=== PATIENT | male | born 1955 | race Caucasian/White ===

== ENCOUNTER 2016-10-10 10:09 | Inpatient (IN) | payer OTHER ==
[~2016-10-10] VITALS: Ht 182.9 cm; Wt 101.6 kg
--- NOTE | ~2016-10-10 | P ---
[facility] [address] PROCEDURE REPORT Name: FRANNIE CHARLTON Tamie Room #: 202-P [facility] IN M.R.#: [id number] Admission: 10/10/16 Attend Phys: Anurag Valdez MD Discharge: Date of : 53 Report #: [id number] THIS REPORT FOR: //name// CC: Pablo Jarquin DATE OF SERVICE: 10/12/2016 DIAGNOSTIC EGD Patient of Dr. Anurag Valdez and Dr. Cayla Jarquin and Dr. Pablo Islas ____. INDICATION FOR PROCEDURE: The patient has a history of passing dark red blood clots per rectum and a drop in his hemoglobin. He was fully anticoagulated at the time of admission and this was for a history of a stoke. Colonoscopy did not reveal a source of bleeding though there was a small amount of blood in the distal colon that was removed with the scope. No active bleeding was seen. The only abnormality that I saw yesterday was uncomplicated diverticula on the left and right side of the colon. EGD is being performed today because there may be a more proximal source of his blood loss in a fully anticoagulated state. Informed consent for this procedure was obtained prior to the administration of any medication. The risks of the procedure which include bleeding, perforation, infection, complications of sedation and the possibility I could miss something have been explained to the patient and he has indicated his consent by signing. DESCRIPTION OF PROCEDURE: Propofol was slowly titrated before and during this procedure for patient comfort by the anesthesia service. The Fujinon upper videoscope was introduced through the upper esophageal sphincter and advanced under direct visualization to the third portion of the duodenum. Findings are noted on withdrawal of the scope. First of all, I saw no blood in the upper GI tract that I visualized. I did not see active bleeding from any site. The second portion of the duodenum appears normal throughout its entirety. In the duodenal bulb, there are several shallow white based nonbleeding ulcerations and white based erosions. These may have been a source of blood loss, but are not actively bleeding and have no visible vessels at this time. I personally think this is a low risk type of finding. The remaining duodenal bulb appears normal. Pylorus, normal mucosa. Antrum, normal mucosa. Body, normal mucosa. Cardia and fundus, normal mucosa. On retroflex view, I was able to see that the patient has a very large hiatal hernia and that he does have some nonbleeding Mike erosions. These may have been the source of GI blood loss, but they are not bleeding at this time. Scope was withdrawn to the esophagus. The Z-line is [address] [address] PROCEDURE REPORT Name: FRANNIE CHARLTON Room #: 202-P [facility] IN M.R.#: [id number] Admission: 10/10/16 Attend Phys: Anurag Valdez MD Discharge: Date of : 53 Report #: [id number] appropriately located at the top of the gastric folds and appears normal. The esophageal mucosa appears normal throughout its entirety. The scope was withdrawn. The patient went to the recovery area in stable condition. He tolerated the procedure well. IMPRESSION: 1. Duodenal bulb erosions and shallow white based duodenal bulb ulcers, nonbleeding. 2. Large hiatal hernia. 3. Mike erosions, nonbleeding. My recommendations at this point because these may not actually be the source of significant blood loss, are to proceed with the M2 capsule study today to make certain there is no large bleeding lesion or potentially large lesion in the small intestine that might explain his acute GI bleeding. The patient has agreed to this prior to the EGD and the sedation for the EGD and his likewise has agreed to the possible M2 capsule and EGD today. The risks were fully explained also prior to sedation of this patient. Thank you very much once again for allowing me to participate in his care, Dr. Valdez and Dr. Jarquin. <ELECTRONICALLY SIGNED> By: Carolina Cardona DO 10/12/16 1624 1055 1145 Carolina Cardona DO /nt
--- NOTE | ~2016-10-10 | P ---
[facility] [place] [address] PROCEDURE REPORT Name: FRANNIE CHARLTON Room #: 202-P [facility] IN M.R.#: [id number] Admission: 10/10/16 Attend Phys: Anurag Valdez MD Discharge: Date of : 53 Report #: [id number] THIS REPORT FOR: //name// CC: Pablo Jarquin DATE OF SERVICE: 10/10/2016 He is a patient of Dr. Cayla Jarquin. INDICATION FOR PROCEDURE: This patient has had painless hematochezia, etiology uncertain. He has a history of colonic diverticulosis, which may be the source, but colonoscopy is being performed because of passage of bright red clots per rectum. He has been on Coumadin with therapeutic INR. Informed consent for this procedure was obtained prior to the administration of any medication. The risks of the procedure which include bleeding, perforation, infection, complications of sedation and the possibility I could miss something have been explained to the patient and he has indicated his consent by signing. Propofol and ketamine were slowly titrated before and during this procedure for the patient comfort by the anesthesia service. A digital anorectal exam was done and no abnormalities were palpated. Then, the [employer] [place] colonoscope was introduced through the anal sphincter and advanced under direct visualization to the terminal ileum. Findings are noted on withdrawal of the scope. The terminal ileum mucosa appears normal. Cecum, normal mucosa. Ascending colon, normal mucosa except for an uncomplicated diverticulum in a couple of places. Retroflexed view in the ascending colon did not reveal any lesions on the backs of the valves. Hepatic flexure, normal mucosa. Transverse colon, normal mucosa. Splenic flexure, normal mucosa. Descending colon, normal mucosa. Sigmoid colon, multiple uncomplicated diverticula were noted in the sigmoid colon, none of them are actively bleeding. Rectum, normal mucosa. Retroflexed view did not reveal any abnormalities. On initial insertion of the scope, there was blood in the distal rectum and the sigmoid colon. It was cleared completely by washing with the scope and I saw no further bright red blood or dark red blood throughout the colon, thereafter. The scope was withdrawn. The patient went to the recovery area in stable condition. He tolerated the procedure well. IMPRESSION: Normal colonoscopic exam to the terminal ileum except for uncomplicated sigmoid and right-sided diverticulosis. My recommendations are for him to be on a heart-healthy diet, which is high fiber. We will keep him [address] [address] PROCEDURE REPORT Name: FRANNIE CHARLTON Room #: 202-P [facility] IN .R.#: [id number] Admission: 10/10/16 Attend Phys: Anurag Valdez MD Discharge: Date of : 53 Report #: [id number] n.p.o. after midnight, proceed with an EGD possible M2 video capsule of the small intestine tomorrow. Thank you very much once again for allowing me to participate in his care, Dr. Valdez and Dr. Jarquin. <ELECTRONICALLY SIGNED> By: Carolina Cardona DO 10/12/16 1050 1416 [id number] Carolina Cardona DO /nt
--- NOTE | ~2016-10-10 | EKG ---
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
--- NOTE | ~2016-10-10 | D ---
[facility] [place] [address] DISCHARGE SUMMARY Name: ZOLTANFRANNIE Tamie Room #: 202-P [facility] IN M.R.#: [id number] Admission: 10/10/16 Attend Phys: Anurag Valdez MD Discharge: 10/13/16 Date of : 53 Report #: [id number] THIS REPORT FOR: //name// CC: Pablo Jarquin DATE OF SERVICE: 10/13/2016 DISCHARGE DIAGNOSES: 1. 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 2. Acute blood loss anemia secondary to above, stable. 3. Duodenal bulb erosion and duodenal bulb ulcers, nonbleeding. 4. Large hiatal hernia. 5. Mike lesions, nonbleeding. 6. Prior history of deep venous thrombosis in 2007, on long-term Coumadin use. 7. History of hemorrhagic cerebrovascular accident. 8. History of prostate cancer. CONSULTS: GI. PROCEDURES: He had a colonoscopy that show diverticulosis. He had an EGD that showed shallow duodenal ulcer, Mike lesions, no active bleeding. 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 HOSPITAL COURSE: The patient is a 61-year-old male with a prior history of CVA, also prior history of DVT in 2007, on chronic Coumadin use, followed by Dr. Cayla Jarquin, presented to the ER secondary to rectal bleeding. Please see details of admission dictated by Anurag Valdez on 10/10/2016. The patient was admitted and GI was consulted. This was felt to be a lower GI bleed secondary to the description of his bloody stools. His Coumadin was held. He underwent upper and lower endoscopies, as well as had an M2A with results as above. It is felt that this was probably related his AVMs, but because he has got some ulcerations as well. He will need to be continued on PPI. He has had no further bleeding; however, GI recommended holding his Coumadin for a week. Initially it was uncertain as to why he is on Coumadin therapy, but I called his primary care physician's office and spoke with Dr. Stuart, who indicated that he has been on Coumadin for DVT discovered in 2007. As far as he knows, there has not been any recurrence, but there may have been hypercoagulability study done. That was positive as he is on long-term Coumadin use. He was agreeable to holding that for now, and will follow up with Dr. Cayla Jarquin in a week to reassess whether he should go back on Coumadin. As far as his CVA is concerned, he could probably just do aspirin therapy. As stated, GI cleared him to restart his Coumadin in a week and to monitor his symptoms. He [address] [address] DISCHARGE SUMMARY Name: FRANNIE CHARLTON Room #: 202-P [facility] IN M.R.#: [id number] Admission: 10/10/16 Attend Phys: Anurag Valdez MD Discharge: 10/13/16 Date of : 53 Report #: [id number] will also need to repeat CBC as well. He will do that with his primary care physician's office as well. Additionally, he has been very weak, and therapy recommended care home facility, but he was refusing that, but he is agreeable to going home with home health. We will set that up for him. DISCHARGE DISPOSITION: To home. DISCHARGE PHYSICAL EXAMINATION: VITAL SIGNS: Temperature of 98, pulse of 88, blood pressure of 152/90, O2 sat 94% on room air. GENERAL: He is awake, alert, and answering questions appropriately, in no acute respiratory distress. HEENT: Normocephalic and atraumatic. Pupils are equal. NECK: Supple. CARDIOVASCULAR: Regular rate and rhythm. No murmurs. LUNGS: Clear to auscultation bilaterally. No crackles or wheeze. ABDOMEN: Soft. No distention or tenderness. EXTREMITIES: No edema. NEUROLOGIC: Nonfocal. DISCHARGE MEDICATIONS: Protonix 40 mg daily, Lipitor 40 mg daily, Ditropan XL 10 mg daily, Neurontin 600 mg q.i.d., baclofen 10 mg b.i.d., Tylenol p.r.n., baclofen 20 mg at bedtime. Hold his meloxicam and Coumadin for now. Follow up with CBC and CMP in 1-week and possibly restart his Coumadin with his primary care physician. Follow up with GI in 3 weeks, and to seek immediate medical attention if symptoms worsen, recur, or if he has any significant medical concerns. Discharge planning took 45 minutes. I explained to both he and his the discharge diagnoses, treatment plan, and appropriate followup in detail. He had no further questions. By: [id number] My Racquel Tang MD /nt
[2016-10-10 10:19] VITALS: BP 140/77
[2016-10-10 10:48] LABS: ABSOLUTE NEUTROPHILS 5.9 thou/uL (1.4-8.2); BASOPHILS 0.6 % (0.0-2.0); EOSINOPHILS 2.1 % (0.0-3.0); HEMATOCRIT 31.9 % (42.0-52.0); HEMOGLOBIN 10.7 gm/dL (14.0-18.0); LYMPHOCYTES 26.8 % (24.0-44.0); MCH 27.6 pg (26.0-34.0); MCHC 33.5 g/dL (28.0-37.0); MCV 82.2 fL (80.0-100.0); MONOCYTES 7.7 % (1.0-8.0); PLATELET COUNT 286 thou/uL (150-400); POLYS 62.8 % (36.0-66.0); RBC 3.88 mil/uL (4.50-6.00); RDW 14.9 % (10.5-14.5); WBC 9.4 thou/uL (4.0-11.0)
[2016-10-10 10:49] LABS: MANUAL DIFF NO
[2016-10-10 10:56] LABS: ANION GAP 7 mmol/L (7-16); BUN 19 mg/dL (7-18); CALCIUM 8.2 mg/dL (8.5-10.1); CHLORIDE 111 mmol/L (98-107); CO2 27 mmol/L (21-32); CREATININE 0.8 mg/dL (0.7-1.3); GLUCOSE 97 mg/dL (74-106); POTASSIUM 3.8 mmol/L (3.5-5.1); SODIUM 145 mmol/L (136-145)
[2016-10-10 11:00] LABS: INR 2.4
[2016-10-10 11:05] LABS: TROPONIN-I < 0.04 ng/mL (<0.04-0.07)
[2016-10-10] MEDS ORDERED: COUMADIN 1MG TAB1 M1 PO (12:05)
[2016-10-10] MEDS ORDERED: ATORVASTATIN CA40 MG PO (12:06)
[2016-10-10] MEDS ORDERED: MOBIC15 MG PO (12:06)
[2016-10-10] MEDS ORDERED: DITROPAN XL10 MG PO (12:07)
[2016-10-10] MEDS ORDERED: NEURONTIN600 MG PO (12:08)
[2016-10-10] MEDS ORDERED: [UNRECOGNIZED DRUG - OTHER] PO (12:09)
[2016-10-10] MEDS ORDERED: LIORESAL 10 MG10 MG PO ×2 (12:09→16:04)
[2016-10-10] MEDS ORDERED: TYLENOL325 MG PO (12:10)
[2016-10-10 15:57] VITALS: BP 150/81
[2016-10-10 16:30] VITALS: BP 160/90; BP 163/93
[2016-10-10 19:11] VITALS: BP 150/91
[2016-10-10 21:44] LABS: URINE BILIRUBIN NEGATIVE (Negative); URINE BLOOD NEGATIVE (Negative); URINE COLOR YELLOW; URINE GLUCOSE-RANDOM* NEGATIVE (Negative); URINE KETONES NEGATIVE (Negative); URINE NITRITE NEGATIVE (Negative); URINE PROTEIN (DIPSTICK) NEGATIVE (Negative); URINE SPECIFIC GRAVITY <= 1.005 (1.003-1.035); URINE UROBILINOGEN 0.2 E.U./dl (0.2-1.0)
[2016-10-11 03:00] VITALS: BP 145/84
[2016-10-11 03:28] LABS: HEMATOCRIT 26.7 % (42.0-52.0); HEMOGLOBIN 9.2 gm/dL (14.0-18.0); MCH 27.9 pg (26.0-34.0); MCHC 34.3 g/dL (28.0-37.0); MCV 81.3 fL (80.0-100.0); RBC 3.29 mil/uL (4.50-6.00); RDW 14.8 % (10.5-14.5); WBC 9.2 thou/uL (4.0-11.0)
[2016-10-11 03:36] LABS: INR 1.6; PROTIME 16.7 Seconds (9.3-11.4)
[2016-10-11 03:55] LABS: CALCIUM 7.7 mg/dL (8.5-10.1); CREATININE 0.7 mg/dL (0.7-1.3); POTASSIUM 3.3 mmol/L (3.5-5.1); TOTAL BILIRUBIN 0.5 mg/dL (<0.1-1.0); TOTAL PROTEIN 5.9 g/dL (6.4-8.2)
[2016-10-11 11:12] VITALS: BP 158/93
[2016-10-11 15:27] VITALS: BP 151/91
[2016-10-11 19:58] VITALS: BP 183/104
[2016-10-11 21:58] LABS: HEMATOCRIT 27.1 % (42.0-52.0); HEMOGLOBIN 9.3 gm/dL (14.0-18.0)
[2016-10-12 03:09] VITALS: BP 154/102
[2016-10-12 04:10] LABS: HEMATOCRIT 26.6 % (42.0-52.0); MCH 27.4 pg (26.0-34.0); MCHC 33.7 g/dL (28.0-37.0); MCV 81.3 fL (80.0-100.0); RBC 3.27 mil/uL (4.50-6.00); RDW 14.9 % (10.5-14.5); WBC 9.5 thou/uL (4.0-11.0)
[2016-10-12 04:16] LABS: CALCIUM 7.8 mg/dL (8.5-10.1); CREATININE 0.6 mg/dL (0.7-1.3); POTASSIUM 3.5 mmol/L (3.5-5.1)
[2016-10-12 04:17] LABS: INR 1.1; PROTIME 11.3 Seconds (9.3-11.4)
[2016-10-12 07:41] VITALS: BP 180/104
[2016-10-12 13:01] VITALS: BP 150/90
[2016-10-12 16:10] LABS: HEMATOCRIT 25.6 % (42.0-52.0); HEMOGLOBIN 8.9 gm/dL (14.0-18.0)
[2016-10-12 19:27] VITALS: BP 155/101
[2016-10-12 19:54] VITALS: BP 141/81
[2016-10-13 00:01] VITALS: BP 155/90
[2016-10-13 02:52] VITALS: BP 156/86
[2016-10-13 03:39] LABS: HEMATOCRIT 25.9 % (42.0-52.0); HEMOGLOBIN 8.9 gm/dL (14.0-18.0); MCH 28.1 pg (26.0-34.0); MCHC 34.4 g/dL (28.0-37.0); MCV 81.7 fL (80.0-100.0); RBC 3.17 mil/uL (4.50-6.00); RDW 15.2 % (10.5-14.5)
[2016-10-13 03:51] LABS: CREATININE 0.8 mg/dL (0.7-1.3); POTASSIUM 3.6 mmol/L (3.5-5.1)
[2016-10-13 07:10] VITALS: BP 152/90
[2016-10-13 11:00] VITALS: BP 149/85
[2016-10-13] MEDS ORDERED: PROTONIX40 M1 PO (11:50)
[2016-10-13 15:35] VITALS: BP 152/90
[2016-10-13 15:47] VITALS: BP 152/90
== END 2016-10-13 16:44 | disposition home health service (06) | DRG 378 ==
LOC: ER 10:09 → EROBS 12:43 → 2N 12:43
PROVIDERS: Emergency Medicine; Family Medicine; Internal Medicine Gastroenterology; Nurse Practitioner Adult Health
PROC: 0DJD8ZZ Inspection of Lower Intestinal Tract, Via Natural or Artificial Opening Endoscopic (ICD-10-PCS; principal; 2016-10-11)
PROC: 0DJ08ZZ Inspection of Upper Intestinal Tract, Via Natural or Artificial Opening Endoscopic (ICD-10-PCS; 2016-10-12)
DX: K55.21 Angiodysplasia of colon with hemorrhage (principal); D62 Acute posthemorrhagic anemia; K57.30 Diverticulosis of large intestine without perforation or abscess without bleeding; K26.9 Duodenal ulcer, unspecified as acute or chronic, without hemorrhage or perforation; K44.9 Diaphragmatic hernia without obstruction or gangrene; E78.5 Hyperlipidemia, unspecified; M19.90 Unspecified osteoarthritis, unspecified site; K25.9 Gastric ulcer, unspecified as acute or chronic, without hemorrhage or perforation; Z86.718 Personal history of other venous thrombosis and embolism; Z79.01 Long term (current) use of anticoagulants; Z86.73 Personal history of transient ischemic attack (TIA), and cerebral infarction without residual deficits; Z85.46 Personal history of malignant neoplasm of prostate; Z90.79 Acquired absence of other genital organ(s)
CPT/HCPCS: 10081; 62110; 62900; 70005